=== PATIENT | female | born 1960 | race Two or more races ===

== ENCOUNTER 2019-08-03 10:46 | Emergency (ER) | payer OTHER ==
[~2019-08-03] VITALS: Ht 160 cm; Wt 59.9 kg
--- NOTE | 2019-08-03 11:05 | NUR ---
ED Nurse Note: Pt walked into ED w/ c/o mouth sore on upper roof of mouth pain 09/15. Pt has epistaxis 2 nights ago. No active bleeding. Pt is alert and orientedx4, ambulatory. She has history of HTN.
[2019-08-03 11:07] VITALS: BP 123/54
[2019-08-03] MEDS ORDERED: AMOXICILLIN500 MG ORAL (11:19)
[2019-08-03] MEDS ORDERED: TYLENOL EXTRA500 MG ORAL (11:19)
[2019-08-03 11:27] VITALS: BP 127/59
--- NOTE | 2019-08-03 11:27 | NUR ---
ER DISCHARGE NOTE: Patient is cleared to be discharged per ERMD, pt is aox4, on room air, with stable vital signs. pt was given dc and prescription instructions, pt was able to verbalize understanding, pt id band removed. pt is able to ambulate with steady gait. pt took all belongings.
--- NOTE | 2019-08-03 12:40 | Emergency Room Report ---
History of Present Illness General Chief Complaint: Sore Throat Source: Patient Present Illness HPI 58-year-old female presents for throat pain. Started 3 days ago. States there is a pain to the roof of her mouth. States she was bleeding from there initially but has since resolved. Pain is throbbing, 8 out of 10, nonradiating. Denies fevers or chills. Denies cough. Denies sick contacts or recent travel. No other aggravating relieving factors. Denies any other associated symptoms Allergies: Coded Allergies: No Known Allergies (Unverified , 08/03/19) COVID-19 Screening Contact w/high risk pt: No Recent Travel to affected area: No Experienced COVID-19 symptoms?: No COVID-19 Testing performed CLIENT ACCOUNT REPRESENTATIVE: No Patient History Past Medical History: HTN Past Surgical History: none Pertinent Family History: none Social History: Denies: smoking, alcohol use, drug use Now: No Immunizations: UTD Reviewed Nursing Documentation: PMH: Agreed; PSxH: Agreed Nursing Documentation-PMH Past Medical History: No History, Except For Hx Hypertension: Yes Review of Systems All Other Systems: negative except mentioned in HPI Physical Exam Vital Signs Date Time Temp Pulse Resp B/P (MAP) Pulse Ox O2 Delivery O2 Flow Rate FiO2 08/03/19 10:49 98.1 73 16 125/58 (80) 100 Room Air Sp02 EP Interpretation: reviewed, normal General Appearance: no apparent distress, alert, GCS 15, non-toxic Head: normocephalic, atraumatic Eyes: bilateral eye normal inspection, bilateral eye PERRL ENT: hearing grossly normal, normal pharynx, no angioedema, normal voice, other - ulceration to hard palate. no active bleeding Neck: full range of motion, supple/symm/no masses Respiratory: chest non-tender, lungs clear, normal breath sounds, speaking full sentences Cardiovascular #1: regular rate, rhythm, no edema Cardiovascular #2: 2+ carotid (R), 2+ carotid (L), 2+ radial (R), 2+ radial (L) , 2+ dorsalis pedis (R), 2+ dorsalis pedis (L) Gastrointestinal: normal bowel sounds, non tender, soft, non-distended, no guarding, no rebound Rectal: deferred Genitourinary: normal inspection, no CVA tenderness Musculoskeletal: back normal, normal range of motion, gait/station normal, non- tender Neurologic: alert, motor strength/tone normal, oriented x3, sensory intact, responsive, speech normal Psychiatric: judgement/insight normal, memory normal, mood/affect normal, no suicidal/homicidal ideation Reflexes: 3+ bicep (R), 3+ bicep (L), 3+ tricep (R), 3+ tricep (L), 3+ knee (R) , 3+ knee (L) Skin: no rash Lymphatic: no adenopathy Medical Decision Making Diagnostic Impression: Primary Impression: Hard palate ulcer ER Course Hospital Course 58 yo F presents with throat pain Differential diagnoses include: URI, pharyngitis, otitis media Clinical course Patient placed on stretcher. After initial history, physical exam reveals a female in no acute distress. Bilateral TM unremarkable. Frontal erythema, no tonsillar exudates. Uvula midline. There is a ulceration to the hard palate on the roof of the mouth. No active bleeding. Discussed findings with patient. Will prescribe antibiotics. Would benefit from outpatient ENT evaluation. I will provide referrals. Safe for discharge close outpatient follow-up Diagnosis - hard palate ulcer Stable and discharged home with prescriptions for tylenol, amoxicillin. Instructed to followup with PMD. return to ED if symptoms recur or worsen Last Vital Signs Date Time Temp Pulse Resp B/P (MAP) Pulse Ox O2 Delivery O2 Flow Rate FiO2 08/03/19 11:27 98.4 70 17 127/59 98 Room Air Status: improved Disposition: HOME, SELF-CARE Condition: Stable Scripts Acetaminophen* (TYLENOL EXTRA STRENGTH*) 500 Mg Tablet 500 MG ORAL Q8H PRN for Prn Headache/Temp > 101, #30 TAB 0 Refills Prov: Cliff Lopez MD 08/03/19 Amoxicillin* (AMOXIL*) 500 Mg Capsule 500 MG ORAL THREE TIMES A DAY, #21 CAP Prov: Cliff Lopez MD 08/03/19 Referrals: [facility],REFERRING (PCP) Kade Veliz MD Comp. [facility] Patient Instructions: Oral Ulcers Cliff Lopez MD August 03, 2019 12:40
== END 2019-08-03 11:27 | disposition home or self-care (01) ==
LOC: EMR 11:24
DX: K12.1 Other forms of stomatitis (principal); I10 Essential (primary) hypertension
CPT/HCPCS: 99282